=== PATIENT | female | born 1985 | race Caucasian/White ===

== ENCOUNTER 2020-01-06 21:12 | Emergency (ER) | payer OTHER, SELFPAY ==
[2020-01-06 21:21] VITALS: BP 124/90; PULSE 112; RESP 18; TEMP 36.9; O2SAT 98
--- NOTE | 2020-01-06 21:32 | ED.NAVMDI ---
HPI - Nausea/Vomiting/Diarrhea General Chief complaint: Nausea/Vomiting/Diarrhea Stated complaint: n/v/d Time Seen by Provider: 01/06/20 21:30 Source: patient and RN notes reviewed Mode of arrival: ambulatory Limitations: no limitations History of Present Illness HPI Narrative: Pt is a 34 y/o female who presents to the ED with c/o nausea, vomiting, and diarrhea starting earlier today. She notes that she is currently on her period, and reports associated ABD cramping. Pt denies any fever, chills, or cough. She states that her child had similar symptoms roughly 1 week ago. MD elicited complaint: nausea, vomiting and diarrhea Onset (ago): hour(s) (several) Associated nausea: Yes Associated abdominal pain: Yes Quality: cramping Associated symptoms: denies other symptoms Related Data Allergies Allergy/AdvReac Type Severity Reaction Status Date / Time No Known Allergies Allergy Verified 01/06/20 21:24 Review of Systems Review of Systems: All systems reviewed & are unremarkable except as noted in HPI and below Constitutional: Constitutional: Denies chills and Denies fever(s) Respiratory: Respiratory: Denies cough Gastrointestinal: Gastrointestinal: Reports abdominal pain (ABD cramping), Reports diarrhea, Reports nausea and Reports vomiting PMFSH Past Medical History Medical History Anemia Ovarian cyst Seasonal allergies Upper respiratory infection Surgical History Surgical History No significant past surgical history Social History Social History Smoking status: Never smoker Exam Narrative: Exam Narrative: APPEARANCE: No acute distress, nontoxic, resting in bed EYES: EOMI HEENT: Normocephalic, atraumatic, oromucosa dry, no erythema exudate posterior pharynx RESPIRATORY: No respiratory distress Clear to auscultation bilaterally with no rhonchi wheezing or rales. CARDIOVASCULAR: Regular rate and rhythm without murmurs rubs or gallops. ABDOMINAL: Soft, nontender, nondistended, no rebound or guarding MUSCULOSKELETAl: Moves all extremities. No clubbing, cyanosis or edema. NEURO: Awake and alert. Following commands, speech normal, no focal deficits SKIN:: Warm, dry. No rashes lesions or abrasions PSYCHIATRIC: Normal affect/mood, Course Course Emergency Course: Patient states she is feeling better at this time. Able to drink in ED with no emesis Discussed with patient results of workup and diagnosis. Discussed need for follow-up with primary care, proper use of medication, and reasons to return to the emergency department. Patient understands and agrees to current treatment plan Vital Signs Vital signs: Vital Signs Temperature 98.4 F 01/06/20 21:21 Pulse Rate 112 H 01/06/20 21:21 Respiratory Rate 18 01/06/20 21:21 Blood Pressure 124/90 01/06/20 21:21 Pulse Oximetry 98 01/06/20 21:21 Temperature 98.4 F 01/06/20 21:21 Pulse Rate 84 01/06/20 23:10 Respiratory Rate 20 01/06/20 23:10 Blood Pressure 118/78 01/06/20 23:10 Pulse Oximetry 100 01/06/20 23:10 MDM - Nausea/Vomiting/Diarrhea Lab Data Result diagrams: 01/06/20 21:28 01/06/20 21:28 Labs: Lab Results 01/06/20 01/06/20 01/06/20 Range/Units 21:28 21:28 21:29 WBC 13.8 H (4.5-10.0) K/mm3 RBC 5.31 (4.2-5.4) M/mm3 Hgb 15.0 (12.0-15.0) g/dL Hct 46.6 (37.0-47.0) % MCV 87.8 (80-100) fl MCH 28.2 (26-34) pg MCHC 32.2 (32-36) g/dl RDW 12.5 (11.5-14.5) % Plt Count 373 (150-375) k/mm3 MPV 10.3 (7.4-10.4) fl Immature Gran % (Auto) 0.3 (0-0.5) % Neut % (Auto) 87.0 H (45.5-73.1) % Lymph % (Auto) 7.5 L (18.3-44.2) % [place] % (Auto) 4.9 (2.6-8.5) % Eos % (Auto) 0.1 (0-4.4) % Baso % (Auto) 0.2 (0.2-1.2) % Lymph # (Auto) 1.04 (0.9-3.2) K/mm3 [place] # (Auto) 0.7 H (0.1-0.6)
[2020-01-06 21:36] LABS: Basophils Percent Auto 0.2 % (0.2-1.2); Eosinophils Percent Auto 0.1 % (0-4.4); Hematocrit 46.6 % (37.0-47.0); Immature Granulocyte Absolute 0.04 K/mm3 (0.00-0.031); Immature Granulocyte Percent A 0.3 % (0-0.5); Lymphocytes Absolute Auto 1.04 K/mm3 (0.9-3.2); Lymphocytes Percent Auto 7.5 % (18.3-44.2); Mean Corpuscular HGB Conc 32.2 g/dl (32-36); Mean Corpuscular Hemoglobin 28.2 pg (26-34); Mean Corpuscular Volume 87.8 fl (80-100); Mean Platelet Volume 10.3 fl (7.4-10.4); Monocytes Absolute Auto 0.7 K/mm3 (0.1-0.6); Monocytes Percent Auto 4.9 % (2.6-8.5); Platelet Count Result 373 k/mm3 (150-375); Red Blood Count 5.31 M/mm3 (4.2-5.4); Red Cell Distribution Width 12.5 % (11.5-14.5); White Blood Count 13.8 K/mm3 (4.5-10.0)
[2020-01-06] MEDS: LACTATED RINGERS 1,000 ML 999 ML IV CONT ×2 (21:41→23:08)
[2020-01-06] MEDS: ONDANSETRON INJ 4 MG/2 ML VIAL IV PUSH (21:41)
[2020-01-06 21:42] VITALS: BP 119/86; PULSE 118
[2020-01-06 21:43] VITALS: BP 112/61; BP 124/82; PULSE 109; PULSE 116
[2020-01-06 21:44] LABS: Add Urine Microscopic? YES; Appearance Urine Cloudy (Clear); Bacteria Urine Trace /hpf; Bilirubin Urine Negative (Negative); Blood Urine 1+ (Negative); Color Urine Amber (Yellow); Glucose Urine UA Negative (Negative); Ketones Urine 1+ mg/dL (Negative); Leukocyte Esterase Ur Negative LEU/UL (Negative); Mucus Urine Moderate /lpf; Nitrate Urine Negative (Negative); Protein Urine 2+ mg/dL (Negative); Specific Grav Ur 1.027 (1.001-1.035); Squamous Epithelial Cell Urine Rare /hpf (Few); Urobilinogen Urine Negative mg/dL (<2.0); WBC Urine 0-3 /hpf
[2020-01-06 21:48] LABS: Alanine Aminotransferase 23 U/L (4-35); Albumin Level 4.9 g/dL (3.5-5.1); Alkaline Phosphatase 54 U/L (38-126); Aspartate Amino Transferase 26 U/L (14-36); Bilirubin,Total 0.5 mg/dL (0.2-1.3); Blood Urea Nitrogen 10 mg/dL (7-17); Calcium 9.8 mg/dL (8.4-10.2); Carbon Dioxide 17 mmol/L (22-30); Chloride 104 mmol/L (98-107); Estimated CRCL calculation 111 ml/min; Estimated Glomerular Filt Rate > 60; Glucose 112 mg/dL (65-105); Lipase 42 U/L (23-300); Potassium 4.7 mmol/L (3.4-5.0); Sodium 140 mmol/L (137-145)
[2020-01-06 23:10] VITALS: BP 118/78; PULSE 84; RESP 20; O2SAT 100
[2020-01-06] MEDS: PROMETHAZINE HCL 25 MG/ML AMPUL 12.5 MG IV PUSH (23:33)
--- NOTE | 2020-01-07 00:41 | PC.NURSE ---
pt tolerated po fluids
[2020-01-07 01:28] VITALS: BP 126/73; PULSE 82; RESP 20; O2SAT 100
== END 2020-01-07 01:35 | disposition home or self-care (01) ==
PROVIDERS: Emergency Provider Emergency Medicine
DX: R11.2 Nausea with vomiting, unspecified (principal); R19.7 Diarrhea, unspecified; Z86.2 Personal history of diseases of the blood and blood-forming organs and certain disorders involving the immune mechanism
CPT/HCPCS: 36415; 80053; 81001; 81025; 83690; 85025; 96361; 96374; 96375; 99284; J2405; J2550; J7120

== ENCOUNTER 2021-06-07 15:53 | Emergency (ER) | payer OTHER, SELFPAY ==
[2021-06-07 16:10] VITALS: BP 123/80; PULSE 79; RESP 16; TEMP 36.9; O2SAT 100
--- NOTE | 2021-06-07 16:17 | ED.URI ---
HPI - URI/Sore Throat General Chief Complaint: Upper Respiratory Infection Stated Complaint: sinus drainage/Covid exposure History of Present Illness HPI Narrative: This is a 36 year old that was given a phone call from her mother who she seen 9 days ago in [facility] and she was positive for COvid-19. According to patient she was outside most of the day with her and she spent about 20 minutes inside with her. Patient states that she came directly her to be tested for Covid-19 . Patient states that she had noticed that she has had nasal drainage and a sore throat for about a day and she denies taking anything . Patient states she has not had a fever, nausea, vomiting and or diarrhea . Patient says she has been feeling tired. Related Data Home Medications Medication Instructions Recorded Confirmed liothyronine mcg 06/07/21 Allergies Allergy/AdvReac Type Severity Reaction Status Date / Time No Known Allergies Allergy Verified 01/06/20 21:24 Review of Systems Review of Systems: Narrative: CONSTITUTIONAL: Denies fever, chills, or sweats. EYES: Denies visual changes, redness, or discharge. ENT: Denies rhinorrhea, congestion, report sore throat, or otalgia. CARDIOVASCULAR:Denies chest pain, palpitations, or edema. RESPIRATORY: reports cough or dyspnea. GASTROINTESTINAL: Denies abdominal pain, nausea, vomiting, or diarrhea. GENITOURINARY: Denies dysuria or hematuria. SKIN:[Denies rash or itching. MUSCULOSKELETAL:Denies back pain, joint pain, or myalgia. NEUROLOGIC: Denies headache, numbness, or weakness. PSYCHIATRIC:Denies anxiety or depression PMFSH Past Medical History Medical History (Updated 06/07/21 @ 16:43 by Paola Fung NP) Anemia Ovarian cyst Seasonal allergies Upper respiratory infection Surgical History Surgical History No significant past surgical history Social History Social History Smoking status: Never smoker Comments At time as signature, I have reviewed and agree with nursing past medical, social, surgical and family history. Please see nursing chart for further information. There is no relevant family history pertinent to the presenting complaint. Exam Narrative: Exam Narrative: GENERAL:Well-appearing, well-nourished, and in no acute distress. HEAD:Normocephalic, atraumatic. EYES: PERRLA and EOMI. ENT: Nares clear, no rhinorrhea or epistaxis. Mucous membranes moist. mild pharyngeal erythema copious secretion noted NECK: Supple. CHEST: Clear to auscultation. No respiratory distress. HEART: Regular rate and rhythm. Normal peripheral pulses. ABDOMEN: Soft, nontender, nondistended, normal active bowel sounds. EXTREMITIES: Normal range of motion. No edema. SKIN: Warm, dry, no rash. NEURO: No focal deficits. Alert and oriented x3. Course Vital Signs Vital signs: Vital Signs Temperature 98.4 F 06/07/21 16:10 Pulse Rate 79 06/07/21 16:10 Respiratory Rate 16 06/07/21 16:10 Blood Pressure 123/80 06/07/21 16:10 Pulse Oximetry 100 06/07/21 16:10 Temperature 98.4 F 06/07/21 16:10 Pulse Rate 79 06/07/21 16:10 Respiratory Rate 16 06/07/21 16:10 Blood Pressure 123/80 06/07/21 16:10 Pulse Oximetry 100 06/07/21 16:10 MDM - URI/Sore Throat MDM Narrative Medical decision making narrative: Ordered OUtpatient Covid Test for patient Differential Diagnosis Differential diagnosis: Likely upper respiratory infection, otitis media, sinusitis, viral infection, influenza and pharyngitis Discharge Plan Discharge Clinical Impression: Viral infection Upper respiratory infection Qualifiers: URI type: acute pharyngitis Pharyngitis/tonsillitis etiology: unspecified etiology Qualified Code(s): J02.9 - Acute pharyngitis, unspecified Patient Disposition: Home, Self-Care Condition: Stable Instructions: Antibiotic Form, Pharyngitis (ED), C
== END 2021-06-07 16:56 | disposition home or self-care (01) ==
PROVIDERS: Emergency Provider Nurse Practitioner Family
DX: J34.89 Other specified disorders of nose and nasal sinuses (principal); B34.9 Viral infection, unspecified; J02.9 Acute pharyngitis, unspecified; Z20.822 Contact with and (suspected) exposure to COVID-19
CPT/HCPCS: 99213; G0463

== ENCOUNTER → 2021-06-08 08:24 | Outpatient (CLI) | payer OTHER, SELFPAY ==
[2021-06-09 15:38] LABS: SARS-CoV-2 RNA PCR Positive
== END ==
PROVIDERS: Visit Provider Nurse Practitioner Family
DX: U07.1 COVID-19 (principal); J06.9 Acute upper respiratory infection, unspecified
CPT/HCPCS: C9803; U0003; U0005

== ENCOUNTER 2024-10-30 09:17 | Outpatient (CLI) | payer BC, SELFPAY ==
--- NOTE | ~2024-10-30 | MM_ITS ---
EXAMINATION: MM screening renee BI w eliane HISTORY: Screening TECHNIQUE: Craniocaudal and mediolateral oblique 3-D tomosynthesis images were obtained and synthetic 2-D images were generated. CAD analysis was submitted and interpreted. COMPARISON: No prior mammogram is available for comparison at this institution. BREAST PARENCHYMAL COMPOSITION: Not Dense: The breasts are almost entirely fatty. FINDINGS: There is no evidence of suspicious mass, calcification, or architectural distortion to sugg est malignancy in either breast. There has been no suspicious interval change. IMPRESSION: 1. No mammographic evidence of malignancy. 2. Recommend routine screening mammography in one year. BI-RADS Category 1: Negative Reviewed, dictated and finalized at location B. [employer]
== END 2024-10-30 09:18 | disposition home or self-care (01) ==
LOC: ANHIMG 09:18
PROVIDERS: Visit Provider Obstetrics & Gynecology Gynecology
DX: Z12.31 Encounter for screening mammogram for malignant neoplasm of breast (principal)
CPT/HCPCS: 77063; 77067

== ENCOUNTER 2025-11-01 09:41 | Outpatient (CLI) | payer BC, SELFPAY ==
--- NOTE | ~2025-11-01 | MM_ITS ---
EXAMINATION: MM screening renee BI w eliane HISTORY: Screening TECHNIQUE: Craniocaudal and mediolateral oblique 3-D tomosynthesis images were obtained and synthetic 2-D images were generated. CAD analysis was submitted and interpreted. COMPARISON: 10/30/2024 BREAST PARENCHYMAL COMPOSITION: Not Dense: The breasts are almost entirely fatty. FINDINGS: There is no evidence of suspicious mass, calcification, or architectural distortion to suggest malignancy in either breast. There has been no suspicious interval change. IMPRESSION: 1. No mammographic evidence of malignancy. 2. Recommend routine screening mammography in one year. BI-RADS Category 1: Negative Reviewed, dictated and finalized at location O. 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
--- OUTSIDE RECORDS SUMMARY | 2025-11-01 10:02 | XMS_ITS | Clinical Summary ---
Author Organization [facility] [employer] Address [address] 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,non-owned Affiliates and Associated Physician Practices is amultiple site organization consisting of ambulatory clinics and hospital sitesin [place], [place], [place] and [place]. This disclosure is being madepursuant to the Care Everywhere program and may not contain all information available regarding this patient. Last updated 18[employer] Allergies No known active allergies Medications * Be aware that medications may not be up to date on this document. Alwaysverify current medications with the patient. Vit-Fe Fumarate-FA ( VITAMIN) 27-0.8 MG tablet Take 1 tablet by mouth once daily Active Family History Medical History Relation Name Comments Hypertension Father Relation Name Status Comments Father Social History Tobacco Use Types Packs/Day Years Used Date Smoking Tobacco: Former Smokeless Tobacco: Never Estimated Date of Delivery Comme nts Yes 05/16/2019 Sex and Gender Information Value Date Recorded Sex Assigned at Not on file Legal Sex Female 3:48 AM CDT Gender Identity Not on file Sexual Orientation Straight 03/12/2022 9: 24 AM CDT Last Filed Vital Signs Vital Sign Reading Time Taken Comments Blood Pressure 120/78 05/07/2019 2:27 PM CDT Pulse 88 05/07/2019 2:27 PM CDT Temperature 37.2 C (99 F) 05/07/2019 2:27 PM CDT Respiratory Rate 16 05/07/2019 2:27 PM CDT Oxygen Saturation 97% 05/07/2019 2:27 PM CDT Inhaled Oxygen Concentration - - Weight 93 kg (205 lb) 05/07/2019 2:27 PM CDT Height 162.6 cm (5' 4) 05/07/2019 2:27 PM CDT Body Mass Index 35.19 05/07/2019 2:27 PM CDT Plan of Treatment Health Maintenance Due Date Last Done Comments LIPID TESTING 1984 MAMMOGRAM 1984 HIV SCREENING 1999 HEPATITIS C SCREENING 04/05/2002 DTAP/TDAP/TD VACCINES (1 - Tdap) 2003 HEPATITIS B VACCINE (1 of 3 - 19+ 3-dose series) 2003 HPV VACCINE (1 - 3-dose SCDM series) 2011 DEPRESSION SCREENING 11/14/2024 COVID-19 VACCINE (1 - 2024-2 6 season) 2025 INFLUENZA VACCINE (#1) 2025 09/05/2021 ZOSTER VACCINE (1 of 2) 2034 Respiratory Syncytial Virus (RSV) Vaccine Pt: or over 60 yrs (1 - 1-dose 75+ series) 2059 HIB VACCINE Aged Out No longer eligi ble based on patient's age to complete this topic MENINGOCOCCAL (Group B) VACC INE SHARED DECISION-MAKING Aged Out No longer eligibl e based on patient's age to complete this topic MENINGOCOCCAL GROUPS A/C/Y/W VACCINE Aged Out No longer eligible b ased on patient's age to complete this topic PNEUMOCOCCAL VACCINE Aged Out No long er eligible based on patient's age to complete this topic Insurance [employer]
--- OUTSIDE RECORDS SUMMARY | 2025-11-01 10:02 | XMS_ITS | Clinical Summary ---
Author Organization 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
== END 2025-11-01 09:42 | disposition home or self-care (01) ==
PROVIDERS: PCP Registered Nurse
DX: Z13.1 Encounter for screening for diabetes mellitus (principal)
CPT/HCPCS: 77063; 77067